=== PATIENT | female | born 1945 | race Caucasian/White ===

== ENCOUNTER 2020-09-24 09:00 | Outpatient (RCR) | payer MEDICARE, SELFPAY ==
[2015-11-17 09:59] VITALS: BMI 24.6
== END 2020-09-24 23:59 ==
LOC: IMMUN 09:00
PROVIDERS: PCP Family Medicine; Visit Provider Family Medicine
DX: Z23 Encounter for immunization (principal)
CPT/HCPCS: 0011A; 0012A